=== PATIENT | female | born 1935 | race Two or more races ===

== ENCOUNTER 2017-04-16 12:59 | Outpatient (CLI) | payer MEDICARE, OTHER ==
[~2017-04-16 12:59] MED LIST: ACETAMINOPHEN-1 EAC1 ORAL; ADVIL200 MG ORAL; AMIODARONE HCL100 MG ORAL; AMLODIPINE BESYL5 MG ORAL; ATORVASTATIN CA20 MG ORAL; BACLOFEN10 MG ORAL; BENADRYL25 MG ORAL; CARVEDILOL25 MG ORAL; CLOPIDOGREL75 MG ORAL; DILANTIN100 MG ORAL; DILANTIN50 MG ORAL; DIOVAN160 MG ORAL; DOCUSATE SODIU100 M2 ORAL; FOSAMAX70 MG ORAL; GABAPENTIN300 MG ORAL; LASIX20 M1 ORAL; MELOXICAM15 MG PO; NAPROXEN250 M1 PO; OYSTER SHELL 51 EAC1 PO; PANTOPRAZOLE SO40 MG ORAL
[2017-04-16 13:25] VITALS: BP 168/78
[2017-04-16] MEDS ORDERED: OMEPRAZOLE20 M2 ORAL (14:33)
[2017-04-16] MEDS ORDERED: DONEPEZIL HCL5 MG ORAL (14:33)
[2017-04-16] MEDS ORDERED: LEVETIRACETAM500 MG ORAL (14:33)
--- NOTE | 2017-04-16 16:19 | GI Initial Consult Note ---
ChaudharyLaura Kellyoi N.P. 04/16/17 1619: History of Present Illness General Date patient seen: Apr 16, 2017 Time patient seen: 16:16 Referring physician: KLAUDIA CHEATHAM Reason for Consultation: ANEMIA, CONSTIPATION Present Illness HPI Pleasant 81 year old female referred by Dr. Cheatham for c/o of severe constipation. Patient presents today with abdominal pain, GERD and constipation. History of anemia. S/p EGD/colonoscopy approximately 2 years ago , see report below. Denies any unintentional weight loss or changes in dietary habits. No signs of abuse or neglect. Patient noted as fall risk. DATE OF PROCEDURE: 04/06/2015 GASTROENTEROLOGY PROCEDURE REPORT PRE-ENDOSCOPIC DIAGNOSIS: Severe iron-deficiency anemia. POST-ENDOSCOPIC DIAGNOSES: 1. 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 2. Status post random biopsy of the duodenum. 3. Otherwise, negative upper endoscopy as well as colonoscopy. Home Meds Reported Medications Donepezil Hcl* (DONEPEZIL HCL*) 5 Mg Tablet, 5 MG ORAL DAILY, TAB 04/16/17 Omeprazole (OMEPRAZOLE) 20 Mg Capsule.dr, 20 MG ORAL DAILY, CAP 04/16/17 Levetiracetam* (LEVETIRACETAM*) 500 Mg Tablet, 500 MG ORAL TWICE A DAY, #60 TAB 0 Refills 04/16/17 Atorvastatin Calcium* (ATORVASTATIN CALCIUM*) 20 Mg Tablet, 20 MG ORAL BEDTIME, TAB 04/04/15 Amlodipine Besylate* (AMLODIPINE BESYLATE*) 5 Mg Tablet, 5 MG ORAL DAILY, TAB 04/04/15 Calcium Carbonate/Vitamin D3 (OYSTER SHELL 500 MG + VIT D TB) 1 Each Tablet, 0.5 EACH PO, TAB 04/04/15 Valsartan (Diovan) 160 Mg Tab, 160 MG ORAL BID, TAB 04/04/15 Carvedilol* (CARVEDILOL*) 25 Mg Tablet, 6.25 MG ORAL BID, TAB 04/04/15 Furosemide* (LASIX*) 20 Mg Tablet, 20 MG ORAL TWICE A DAY, TAB 04/04/15 Gabapentin* (GABAPENTIN*) 300 Mg Capsule, 300 MG ORAL TWICE A DAY, CAP 0 Refills 04/04/15 Discontinued Reported Medications Phenytoin (Dilantin) 50 Mg Tab, 100 MG ORAL THREE TIMES A DAY, #90 TAB 0 Refills 04/04/15 Baclofen* (BACLOFEN*) 10 Mg Tablet, 10 MG ORAL BID, TAB 04/04/15 Clopidogrel* (CLOPIDOGREL*) 75 Mg Tablet, 75 MG ORAL DAILY, TAB 04/04/15 Diphenhydramine Hcl* (BENADRYL*) 25 Mg Capsule, 25 MG ORAL BEDTIME Y for Itching , CAP 04/04/15 Docusate Sodium (DOCUSATE SODIUM) 100 Mg Tablet, 100 MG ORAL DAILY, #30 TAB 0 Refills 04/04/15 Amiodarone Hcl (AMIODARONE HCL) 100 Mg Tablet, 200 MG ORAL DAILY, TAB 04/04/15 Pantoprazole* (PANTOPRAZOLE*) 40 Mg Tablet.dr, 40 MG ORAL DAILY, TAB 04/04/15 Alendronate Sodium* (FOSAMAX*) 70 Mg Tablet, 70 MG ORAL ONCE A WEEK, TAB 04/04/15 Phenytoin Sodium Extended* (DILANTIN*) 100 Mg Capsule, 200 MG ORAL TWICE A DAY, #60 CAP 0 Refills 04/04/15 Acetaminophen With Codeine (T#3) (TYLENOL #3 TAB*) 1 Each Tablet, 1 TAB ORAL EVERY 8 HOURS Y for For Pain, TAB 04/04/15 Med list reviewed/reconciled: Yes Allergies: Coded Allergies: NO KNOWN DRUG ALLERGIES (Verified Allergy, Unknown, 04/04/15) Patient History History Provided By: Patient, Medical Record H Narrative HTN osteopetrosis GERD Seizures hyperlipidemia stroke dementia heart disease Past Surgical History: Ovary removal varicose vein appendectomy Social History: Reports: other - coffee Review of Systems All Other Systems: negative except mentioned in HPI Physical Exam Vital Signs Date Time Temp Pulse Resp B/P (MAP) Pulse Ox O2 Delivery O2 Flow Rate FiO2 04/16/17 13:25 97.9 51 16 168/78 95 Sp02 EP Interpretation: reviewed, normal General Appearance: well appearing, no apparent distress, alert Head: normocephalic EENT: PERRL/EOMI, normal ENT inspection Neck: supple Respiratory: normal breath sounds, no respiratory distress Cardiovascular: normal rate Gastrointestinal: normal inspection, non tender, soft, normal bowel sounds, non -distended Rectal: deferred Genitourinary: no CVA tenderness Musculoskeletal: normal inspection, back normal Neurologic: normal inspection, alert, oriented x3, responsive Psychiatric: normal inspection, judgement/insight normal, memory normal Skin: normal inspection, normal color, no rash, warm/dry, palpation normal, well hydrated Lymphatic: normal inspection, no adenopathy GI: Plan Problems: (1) Constipation (2) GERD (gastroesophageal reflux disease) (3) Abdominal pain (4) Anemia (5) Gastric AVM Plan Rx Amitiza 24mcg BID RTC x 1 month will consider SBCE during f/u due to history of anemia. Seen with Dr. Steele. Thank you for this patient referral. GOKUL STEELE 04/17/17 1030: History of Present Illness Present Illness Home Meds Reported Medications Donepezil Hcl* (DONEPEZIL HCL*) 5 Mg Tablet, 5 MG ORAL DAILY, TAB 04/16/17 Omeprazole (OMEPRAZOLE) 20 Mg Capsule.dr, 20 MG ORAL DAILY, CAP 04/16/17 Levetiracetam* (LEVETIRACETAM*) 500 Mg Tablet, 500 MG ORAL TWICE A DAY, #60 TAB 0 Refills 04/16/17 Atorvastatin Calcium* (ATORVASTATIN CALCIUM*) 20 Mg Tablet, 20 MG ORAL BEDTIME, TAB 04/04/15 Amlodipine Besylate* (AMLODIPINE BESYLATE*) 5 Mg Tablet, 5 MG ORAL DAILY, TAB 04/04/15 Calcium Carbonate/Vitamin D3 (OYSTER SHELL 500 MG + VIT D TB) 1 Each Tablet, 0.5 EACH PO, TAB 04/04/15 Valsartan (Diovan) 160 Mg Tab, 160 MG ORAL BID, TAB 04/04/15 Carvedilol* (CARVEDILOL*) 25 Mg Tablet, 6.25 MG ORAL BID, TAB 04/04/15 Furosemide* (LASIX*) 20 Mg Tablet, 20 MG ORAL TWICE A DAY, TAB 04/04/15 Gabapentin* (GABAPENTIN*) 300 Mg Capsule, 300 MG ORAL TWICE A DAY, CAP 0 Refills 04/04/15 Discontinued Reported Medications Phenytoin (Dilantin) 50 Mg Tab, 100 MG ORAL THREE TIMES A DAY, #90 TAB 0 Refills 04/04/15 Baclofen* (BACLOFEN*) 10 Mg Tablet, 10 MG ORAL BID, TAB 04/04/15 Clopidogrel* (CLOPIDOGREL*) 75 Mg Tablet, 75 MG ORAL DAILY, TAB 04/04/15 Diphenhydramine Hcl* (BENADRYL*) 25 Mg Capsule, 25 MG ORAL BEDTIME Y for Itching , CAP 04/04/15 Docusate Sodium (DOCUSATE SODIUM) 100 Mg Tablet, 100 MG ORAL DAILY, #30 TAB 0 Refills 04/04/15 Amiodarone Hcl (AMIODARONE HCL) 100 Mg Tablet, 200 MG ORAL DAILY, TAB 04/04/15 Pantoprazole* (PANTOPRAZOLE*) 40 Mg Tablet.dr, 40 MG ORAL DAILY, TAB 04/04/15 Alendronate Sodium* (FOSAMAX*) 70 Mg Tablet, 70 MG ORAL ONCE A WEEK, TAB 04/04/15 Phenytoin Sodium Extended* (DILANTIN*) 100 Mg Capsule, 200 MG ORAL TWICE A DAY, #60 CAP 0 Refills 04/04/15 Acetaminophen With Codeine (T#3) (TYLENOL #3 TAB*) 1 Each Tablet, 1 TAB ORAL EVERY 8 HOURS Y for For Pain, TAB 04/04/15 Allergies: Coded Allergies: NO KNOWN DRUG ALLERGIES (Verified Allergy, Unknown, 04/04/15) GI: Plan Plan The patient was seen and examined at bedside and all new and available data was reviewed in the patients chart. I agree with the above findings, impression and plan. (Patient seen earlier today. Signature stamp does not reflect patient encounter time.). - MD Neena [facility] Lamont N.PPurnima Apr 16, 2017 16:19 GOKUL STEELE Apr 17, 2017 10:30
== END 2017-04-16 13:35 | disposition home or self-care (01) ==
LOC: PAN 12:59
DX: K59.00 Constipation, unspecified (principal); K21.9 Gastro-esophageal reflux disease without esophagitis; R10.9 Unspecified abdominal pain; D64.9 Anemia, unspecified; R56.9 Unspecified convulsions; E78.5 Hyperlipidemia, unspecified; Z86.73 Personal history of transient ischemic attack (TIA), and cerebral infarction without residual deficits; F03.90 Unspecified dementia, unspecified severity, without behavioral disturbance, psychotic disturbance, mood disturbance, and anxiety; I11.9 Hypertensive heart disease without heart failure; Z90.89 Acquired absence of other organs
CPT/HCPCS: 99201

== ENCOUNTER 2017-04-27 10:14 | Outpatient (CLI) | payer MEDICARE, MEDICAID ==
[~2017-04-27 10:14] MED LIST changes: +DONEPEZIL HCL5 MG ORAL; +LEVETIRACETAM500 MG ORAL; +OMEPRAZOLE20 M2 ORAL
--- NOTE | 2017-05-01 19:45 | Electroencephalogram ---
DATE OF PROCEDURE: 04/27/2017 DATE OF TEST: 04/27/2017 HISTORY: This is an 81-year-old female with a history of transient unresponsiveness and seizure disorder, maintained on Keppra. EEG was done using 18 electrodes placed scalp to scalp, [id number] montages according to 10/20 International System. During the recording, the patient described as awake, well cooperating, and normal mentality. Most wakeful portions of recording, background activity consists of well regulated, [id number] voltage, alpha activities 8 to 9 cycles per second bilaterally. There was no spike or wave. No asymmetry noted. As recording progressed, there was further attenuation of background. Corresponding to sleep stages, photic stimulation from 3 to 32 hertz was with no significant changes. IMPRESSION: Normal awake stage 1 sleep EEG with photic stimulation. COMMENT: Absence of paroxysmal event on a single recording does not rule out seizure disorder. Kaushik Guevara M.D. DR: Kelby JOB#: [id number] CC:
== END 2017-04-27 12:14 | disposition home or self-care (01) ==
LOC: CAR 10:14
DX: G40.909 Epilepsy, unspecified, not intractable, without status epilepticus (principal)
CPT/HCPCS: 95819

== ENCOUNTER 2017-05-14 12:50 | Outpatient (CLI) | payer MEDICARE, MEDICAID ==
--- NOTE | 2017-05-14 16:15 | GI Progress Note ---
Assessment/Plan Problems: (1) GERD (gastroesophageal reflux disease) ICD Codes: K21.9 - Gastro-esophageal reflux disease without esophagitis SNOMED: 079856692 (2) Gastric AVM ICD Codes: Q27.33 - Arteriovenous malformation of digestive system vessel SNOMED: 97101207 (3) Abdominal pain ICD Codes: R10.9 - Unspecified abdominal pain SNOMED: 04256726 (4) Constipation ICD Codes: K59.00 - Constipation, unspecified SNOMED: 29688763 (5) Anemia ICD Codes: D64.9 - Anemia, unspecified SNOMED: 578218211 Status: stable Status Narrative Discussed with Dr. Alcocer. Assessment/Plan Rx Amitiza 24mcg recommend Align RTC x 1 month Subjective Gastrointestinal/Abdominal: Reports: constipated Subjective was prescribed amitiza, but did not take because the pharmacist recommended colace. had no relief from colace Objective T 98.7 BP 148/67 P 52 96 RA General Appearance: WD/WN, no apparent distress, alert Cardiovascular: normal rate Respiratory/Chest: normal breath sounds, no respiratory distress Abdominal Exam: normal bowel sounds, non tender, soft Extremities: normal range of motion, non-tender Laura Chaudhary N.P. May 14, 2017 16:15
== END 2017-05-14 13:22 | disposition home or self-care (01) ==
LOC: PAN 12:50
DX: K21.9 Gastro-esophageal reflux disease without esophagitis (principal); Q27.33 Arteriovenous malformation of digestive system vessel; R10.9 Unspecified abdominal pain; K59.00 Constipation, unspecified; D64.9 Anemia, unspecified
CPT/HCPCS: 99212